=== PATIENT | female | born 1960 | race Caucasian/White ===

== ENCOUNTER 2017-07-29 18:04 | Emergency (ER) | payer OTHER ==
[~2017-07-29] VITALS: Ht 167.6 cm; Wt 77.1 kg
[~2017-07-29 18:04] MED LIST: ASPI325 PO; ASPI81CH PO; ATOR40TA PO; Aspirin EC81 MG; CLOP75 PO; DULO60 PO; Esgic Tablet1 EACH; Inderal 20 mg T20 MG PO; LISI5 PO; Lisinopril2.5 MG PO; MIGRELIEF CAPL1 EACH PO; Norco 10-325 T1 EACH PO; Norco 7.5-3251 EACH PO; OXYC5 PO; PREG50 PO; PREG75 PO; PROP80ER PO; SUMA25; Zanaflex4 M1 PO
[2017-07-29 18:26] LABS: BASOPHILS ABSOLUTE AUTO 0.07 K/mm3 (0.00-0.23); BASOPHILS PERCENT AUTO 1 % (0-2); EOSINOPHILS ABSOLUTE AUTO 0.14 K/mm3 (0.00-0.68); EOSINOPHILS PERCENT AUTO 1 % (0-6); Hematocrit 39.7 % (33.0-51.0); Hemoglobin 13.4 g/dL (11.5-16.0); IMMATURE GRAN ABSOLUTE AUTO 0.03 K/mm3 (0.00-0.10); IMMATURE GRAN PERCENT AUTO 0 % (0-1); LYMPHOCYTES ABSOLUTE AUTO 2.94 K/mm3 (0.84-5.20); LYMPHOCYTES PERCENT AUTO 29 % (21-46); MONOCYTES ABSOLUTE AUTO 0.97 K/mm3 (0.16-1.47); MONOCYTES PERCENT AUTO 10 % (4-13); Mean Corpuscular HGB 30.2 pg (26.0-34.0); Mean Corpuscular HGB Conc 33.8 g/dL (31.5-36.5); Mean Corpuscular Volume 90 fL (80-100); Mean Platelet Volume 10.8 fL (9.1-12.4); NEUTROPHILS PERCENT AUTO 59 % (41-73); Platelet Count 247 K/mm3 (150-400); RDW Coefficient Variation 12.5 % (11.7-14.2); RDW Standard Deviation 41.3 fL (35.1-46.3); Red Blood Cell Count 4.43 M/mm3 (3.80-5.20); White Blood Cell Count 10.25 K/mm3 (4.00-11.30)
[2017-07-29 18:47] LABS: Alanine Aminotransfer (ALT/SGP 27 U/L (12-78); Albumin, Blood 3.8 g/dL (3.4-5.0); Alk Phos 99 U/L (50-136); Anion Gap 9 mmol/L (6-16); Aspartate Aminotrans (AST/SGOT 28 U/L (12-37); Bilirubin, Total 0.4 mg/dL (0.1-1.0); Blood Urea Nitrogen 16 mg/dL (8-24); Bun/Creatinine Ratio 11.4 (12.0-20.0); CO2, Blood 27 mmol/L (21-32); Calcium, Blood 9.2 mg/dL (8.5-10.1); Chloride, Blood 105 mmol/L (98-108); Glomerular Filtration Rate 41 (60-); Glucose, Blood 114 mg/dL (70-99); Potassium, Blood 4.2 mmol/L (3.5-5.5); Sodium, Blood 141 mmol/L (136-145); Total Protein, Blood 7.8 g/dL (6.4-8.2); Troponin I <0.015 ng/mL (0.000-0.040)
[2017-07-29 19:49] LABS: Source, Urine Clean Catch
[2017-07-29 19:51] LABS: Bilirubin, Urine Neg (Neg); Blood, Urine Neg (Neg); Glucose Qualitative, Urine Neg (Neg); Ketones, Urine Neg (Neg); Leukocyte Esterase, Urine Neg (Neg); Nitrite, Urine Neg (Neg); Protein, Urine Neg (Neg); Specific Gravity, Urine 1.015 (1.003-1.022); Urobilinogen, Urine NORM (Normal)
[2017-07-29 19:56] LABS: Appearance, Urine Clear (Clear); Color, Urine Yellow (P-Yellow)
== END 2017-07-29 20:33 | disposition home or self-care (01) ==
LOC: ER 18:04
PROVIDERS: Emergency Medicine
DX: R55 Syncope and collapse (principal); E78.5 Hyperlipidemia, unspecified; I10 Essential (primary) hypertension; Z86.73 Personal history of transient ischemic attack (TIA), and cerebral infarction without residual deficits; Z79.899 Other long term (current) drug therapy; Z79.82 Long term (current) use of aspirin
CPT/HCPCS: 36415; 71046; 80053; 81003; 84484; 85025; 93005; 93010; 96374; 99284; J2405

== ENCOUNTER 2017-10-31 09:32 | Day surgery (SDC) | payer OTHER ==
[~2017-10-31 09:32] MED LIST changes: +CHOL10002 PO; +DULO30 PO; -DULO60 PO; -Esgic Tablet1 EACH; +Esgic Tablet1 EACH PO; -Lisinopril2.5 MG PO
== END 2017-10-31 22:46 | disposition home or self-care (01) ==
LOC: MHTC 09:32
PROC: 0JH632Z Insertion of Monitoring Device into Chest Subcutaneous Tissue and Fascia, Percutaneous Approach (ICD-10-PCS; principal; 2017-10-31)
DX: R55 Syncope and collapse (principal); I10 Essential (primary) hypertension; E78.5 Hyperlipidemia, unspecified
CPT/HCPCS: 33282; 99152; C1764; J0690; J2250; J2310; J3010; J7030

== ENCOUNTER → 2018-08-13 | Outpatient (CLI) | payer MEDICARE, OTHER ==
[2018-08-14 07:54] LABS: Protein, Urine Quantitative 7.9 mg/dL (0.0-11.9)
[2018-08-14 08:06] LABS: Microalbumin, Urine Quant. <5.000 mg/L (0.000-20.000)
== END | disposition home or self-care (01) ==
LOC: LAB SHORT 07:05 → LAB 07:05 → LAB SHORT 08-14 07:05
PROVIDERS: Internal Medicine Nephrology
DX: N18.2 Chronic kidney disease, stage 2 (mild) (principal); D63.1 Anemia in chronic kidney disease
CPT/HCPCS: 81050; 82043; 82570; 84156

== ENCOUNTER → 2020-04-28 | Outpatient (CLI) | payer MEDICARE, OTHER | END | disposition home or self-care (01) | LOC: LAB 07:59 → LAB SHORT 07:59 | DX: D17.9 Benign lipomatous neoplasm, unspecified (principal); M79.672 Pain in left foot; M67.472 Ganglion, left ankle and foot; R26.2 Difficulty in walking, not elsewhere classified | CPT/HCPCS: 88304; 88305 ==

== ENCOUNTER 2021-06-20 17:43 | Emergency (ER) | payer MEDICARE ==
[~2021-06-20] VITALS: Ht 167.6 cm; Wt 74.4 kg
== END 2021-06-20 20:42 | disposition home or self-care (01) ==
LOC: ER 17:43
DX: M25.511 Pain in right shoulder (principal); I10 Essential (primary) hypertension; E78.5 Hyperlipidemia, unspecified; Z86.73 Personal history of transient ischemic attack (TIA), and cerebral infarction without residual deficits; Z79.899 Other long term (current) drug therapy; W01.0XXA Fall on same level from slipping, tripping and stumbling without subsequent striking against object, initial encounter
CPT/HCPCS: 73030

== ENCOUNTER 2023-01-11 09:24 | Day surgery (SDC) | payer MEDICARE ==
[~2023-01-11] VITALS: Ht 167.6 cm; Wt 83.4 kg
[2023-01-11] MEDS ORDERED: UBID10 (10:35)
[2023-01-11] MEDS ORDERED: MULTIPLE VITAM1 EACH (10:35)
--- NOTE | 2023-01-11 11:40 | NUR ---
01/11/23 1140 Vane Blanco 20ML NORMAL SALINE USED TO ELEVATE ASCENDING POLYP
[2023-01-11 11:56] VITALS: BP 141/80
== END 2023-01-11 12:15 | disposition home or self-care (01) ==
LOC: ORSCSDS 09:24
PROVIDERS: Surgery
PROC: 3E0H8GC Introduction of Other Therapeutic Substance into Lower GI, Via Natural or Artificial Opening Endoscopic (ICD-10-PCS; principal; 2023-01-11 10:45)
PROC: 0DBL8ZX Excision of Transverse Colon, Via Natural or Artificial Opening Endoscopic, Diagnostic (ICD-10-PCS; principal; 2023-01-11 10:45)
PROC: 0DBK8ZX Excision of Ascending Colon, Via Natural or Artificial Opening Endoscopic, Diagnostic (ICD-10-PCS; principal; 2023-01-11 10:45)
PROC: 0DBH8ZX Excision of Cecum, Via Natural or Artificial Opening Endoscopic, Diagnostic (ICD-10-PCS; principal; 2023-01-11 10:45)
DX: Z12.11 Encounter for screening for malignant neoplasm of colon (principal); R19.5 Other fecal abnormalities; D12.0 Benign neoplasm of cecum; K63.5 Polyp of colon; Z86.73 Personal history of transient ischemic attack (TIA), and cerebral infarction without residual deficits; Z79.01 Long term (current) use of anticoagulants; G47.33 Obstructive sleep apnea (adult) (pediatric); I12.9 Hypertensive chronic kidney disease with stage 1 through stage 4 chronic kidney disease, or unspecified chronic kidney disease; N18.1 Chronic kidney disease, stage 1; Z79.899 Other long term (current) drug therapy
CPT/HCPCS: 88305; J2704; J7120

== ENCOUNTER 2023-06-20 05:54 | Emergency (ER) | payer MEDICARE ==
[~2023-06-20] VITALS: Ht 167.6 cm; Wt 83.9 kg
[~2023-06-20 05:54] MED LIST changes: +MULTIPLE VITAM1 EACH; +UBID10
[2023-06-20 06:04] VITALS: BP 163/99
[2023-06-20] MEDS ORDERED: Ketorolac Tromethamine 30mg Vial IM ONE (07:25)
[2023-06-20] MEDS ORDERED: OXYC5 PO (07:32)
== END 2023-06-20 07:58 | disposition home or self-care (01) ==
LOC: ER 05:54
DX: S52.122A Displaced fracture of head of left radius, initial encounter for closed fracture (principal); S63.501A Unspecified sprain of right wrist, initial encounter; W18.30XA Fall on same level, unspecified, initial encounter; G43.909 Migraine, unspecified, not intractable, without status migrainosus; E78.5 Hyperlipidemia, unspecified; I10 Essential (primary) hypertension
CPT/HCPCS: 73080; 73110; 96372; 99283-25; J1885

== ENCOUNTER 2024-08-14 08:05 | Day surgery (SDC) | payer MEDICARE ==
[~2024-08-14] VITALS: Ht 167.6 cm; Wt 87.1 kg
[~2024-08-14 08:05] MED LIST changes: +Lactated Ringer's 1,000 ML IV ONE; +propofoL 50 ML IV ONE
[2024-08-14] MEDS ORDERED: COLLAGEN 15001 EACH (08:57)
[2024-08-14] MEDS ORDERED: GLUC500 (08:57)
[2024-08-14] MEDS ORDERED: Zovirax Cream 5%2 GM (08:58)
[2024-08-14] MEDS ORDERED: L-Lysine500 M1 (08:58)
[2024-08-14] MEDS ORDERED: Acerola C500 MG (08:58)
[2024-08-14] MEDS ORDERED: FISH OIL 1,0001 EA10 (08:59)
[2024-08-14] MEDS ORDERED: OMEP20ER (08:59)
[2024-08-14] MEDS ORDERED: Lactated Ringer's 1,000 ML IV ONE (09:51)
[2024-08-14 11:43] VITALS: BP 114/78
== END 2024-08-14 11:42 | disposition home or self-care (01) ==
LOC: ORSCSDS 08:05
PROVIDERS: Surgery
PROC: 0DBL8ZX Excision of Transverse Colon, Via Natural or Artificial Opening Endoscopic, Diagnostic (ICD-10-PCS; principal; 2024-08-14 09:30)
DX: Z12.11 Encounter for screening for malignant neoplasm of colon (principal); Z86.0101 Personal history of adenomatous and serrated colon polyps; D12.6 Benign neoplasm of colon, unspecified; D12.3 Benign neoplasm of transverse colon; I50.9 Heart failure, unspecified; M79.7 Fibromyalgia; E78.5 Hyperlipidemia, unspecified; I10 Essential (primary) hypertension; Z86.73 Personal history of transient ischemic attack (TIA), and cerebral infarction without residual deficits; Z79.899 Other long term (current) drug therapy; Z79.02 Long term (current) use of antithrombotics/antiplatelets
CPT/HCPCS: 88305; J2704; J7120